=== PATIENT | male | born 2000 | race Two or more races ===

== ENCOUNTER 2024-10-28 07:32 | Day surgery (SDC) | payer OTHER ==
[2024-10-28] MEDS ORDERED: BUPIVACAINE HCL/MPF 0.5% 30ML VIAL ONE (11:45)
[2024-10-28] MEDS ORDERED: DIBUCAINE 30 GM TUBE ONE (11:45)
[2024-10-28] MEDS ORDERED: LIDOCAINE HCL 1%/EPINEPHRINE 20ML VIAL IJ ONE (11:46)
[2024-10-28] MEDS ORDERED: CEFTRIAXONE SODIUM 2,000 MG VIAL ONE (11:46)
[2024-10-28] MEDS ORDERED: METRONIDAZOLE/SODIUM CHLORIDE 500 MG/100 ML PIGGYBACK IV ONE (11:47)
[2024-10-28] MEDS ORDERED: HEMOSTATIC MATRIX 1 KIT KIT TOP ONE (11:56)
[2024-10-28] MEDS ORDERED: POVIDONE-IODINE 118 ML BOTT TOP ONE (11:57)
[2024-10-28] MEDS ORDERED: INTESTINEX680 M1 PO (15:26)
[2024-10-28] MEDS ORDERED: PERCOCET 5-3251 EACH PO (15:26)
[2024-10-28] MEDS ORDERED: CELECOXIB200 MG PO (15:26)
[2024-10-28] MEDS ORDERED: NEURONTIN300 MG PO (15:26)
== END 2024-10-28 17:10 | disposition home or self-care (01) ==
LOC: CIR.AMB 07:32
PROVIDERS: ATTEND Surgery
DX: K60.30 Anal fistula, unspecified (principal); K60.50 Anorectal fistula, unspecified; L29.0 Pruritus ani; G43.909 Migraine, unspecified, not intractable, without status migrainosus

== ENCOUNTER 2025-03-17 06:50 | Day surgery (SDC) | payer OTHER ==
[~2025-03-17 06:50] MED LIST: CELECOXIB200 MG PO; INTESTINEX680 M1 PO; NEURONTIN300 MG PO; PERCOCET 5-3251 EACH PO
[2025-03-17] MEDS ORDERED: CEFTRIAXONE SODIUM 2,000 MG VIAL ONE (08:19)
[2025-03-17] MEDS ORDERED: METRONIDAZOLE/SODIUM CHLORIDE 500 MG/100 ML PIGGYBACK IV ONE (08:19)
[2025-03-17] MEDS ORDERED: BUPIVACAINE HCL/MPF 0.5% 30ML VIAL ONE (11:27)
[2025-03-17] MEDS ORDERED: POVIDONE-IODINE 118 ML BOTT TOP ONE (11:28)
[2025-03-17] MEDS ORDERED: DIBUCAINE 30 GM TUBE ONE (11:28)
[2025-03-17] MEDS ORDERED: HEMOSTATIC MATRIX 1 KIT KIT TOP ONE (11:28)
[2025-03-17] MEDS ORDERED: LIDOCAINE HCL 1%/EPINEPHRINE 20ML VIAL IJ ONE (11:29)
[2025-03-17] MEDS ORDERED: PERCOCET 5-3251 EACH PO (20:13)
[2025-03-17] MEDS ORDERED: CELECOXIB200 MG PO (20:13)
[2025-03-17] MEDS ORDERED: HIBICLENS118 ML TOP (20:13)
[2025-03-17] MEDS ORDERED: INTESTINEX680 M1 PO (20:13)
[2025-03-17] MEDS ORDERED: NEURONTIN300 MG PO (20:13)
[2025-03-17 22:18] VITALS: BP 137/77; O2SAT 100
== END 2025-03-17 20:45 | disposition home or self-care (01) ==
LOC: CIR.AMB 06:50
PROVIDERS: ATTEND Surgery
DX: K60.321 Anal fistula, complex, initial (principal)